=== PATIENT | female | born 1960 | race Caucasian/White ===

== ENCOUNTER 2021-03-11 08:58 | Outpatient (CLI) | payer MEDICARE, SELFPAY ==
[2021-03-11 09:14] VITALS: BP 134/82; PULSE 67; RESP 17; TEMP 36.6; O2SAT 96; BMI 32.9
[2021-03-11 10:23] VITALS: BP 136/84; PULSE 64; RESP 17; TEMP 36.5; O2SAT 93
[2021-03-11 11:23] VITALS: BP 159/89; PULSE 63; RESP 19; TEMP 36.4; O2SAT 95
== END 2021-03-11 08:59 | disposition home or self-care (01) ==
PROVIDERS: Visit Provider Nurse Practitioner Family
DX: U07.1 COVID-19 (principal)
CPT/HCPCS: 96365